=== PATIENT | female | born 1965 | race Caucasian/White ===

== ENCOUNTER → 2018-10-22 10:07 | Outpatient (CLI) | payer OTHER, SELFPAY ==
--- NOTE | 2018-10-22 10:47 | US_ITS ---
STUDY: NECK ULTRASOUND REASON FOR EXAM: Female, 53 years old. Subcutaneous lump TECHNIQUE: Ultrasound evaluation of the soft tissues of the neck was performed COMPARISON: None. FINDINGS: No sonographic evidence of subcutaneous abdomen noted. No suspicious solid or cystic mass, no hyperemia or adenopathy. US/Head/Neck Soft Tissue IMPRESSION: No suspicious sonographic findings Electronically Signed: Thomas Miller MD at 12:01 EDT , Service support ,
[2018-10-22 12:09] LABS: Vitamin D,25 Hydroxy 26.8 ng/mL (29.95-100.01)
[2018-10-22 12:11] LABS: ALB/GLOB Ratio 1.3 RATIO (0.9-2.4); AST(SGOT) 16 U/L (15-37); Alanine Aminotransfer ALT/SGPT 22 U/L (13-56); Albumin, Serum 4.4 g/dL (3.2-5.0); Alkaline Phosphatase 95 U/L (45-117); Anion Gap 4 (5-15); BUN 18 mg/dL (7-18); Calcium,Total 9.1 mg/dL (8.5-10.1); Chloride 108 mmol/L (98-107); Cholesterol 236 mg/dL (200); Creatinine, Serum 0.95 mg/dL (0.55-1.02); EST Glomerular Filtration Rate 66 mL/min (>60); Est Glom Filt Rate - Afr Amer 80 mL/min (>60); Globulin 3.4 g/dL (2.2-4.2); Glucose 84 mg/dL (74-106); High Density Lipoprotein 61 mg/dL; Potassium 4.1 mmol/L (3.5-5.1); Protein, Total 7.8 g/dL (6.4-8.2); Sodium Level 139 mmol/L (136-145); Thyroid Stim Hormone (TSH) 5.88 uIU/mL (0.358-3.74); Triglycerides 115 mg/dL; Very Low Density Lipoprotein 23 mg/dL (5-40)
== END ==
PROVIDERS: Family Provider Family Medicine; PCP Family Medicine; Referring Provider Family Medicine; Visit Provider Family Medicine
DX: M95.3 Acquired deformity of neck (principal); E03.4 Atrophy of thyroid (acquired); E55.9 Vitamin D deficiency, unspecified; R53.83 Other fatigue; Z13.220 Encounter for screening for lipoid disorders
CPT/HCPCS: 36415; 76536; 80053; 80061; 82306; 84443

== ENCOUNTER → 2018-12-09 09:46 | Outpatient (CLI) | payer OTHER, SELFPAY ==
[2015-04-02 18:56] VITALS: BMI 29.6
[2018-12-09 10:55] LABS: Thyroid Stim Hormone (TSH) 2.73 uIU/mL (0.358-3.74)
== END ==
PROVIDERS: Family Provider Family Medicine; PCP Family Medicine; Referring Provider Family Medicine; Visit Provider Family Medicine
DX: E03.4 Atrophy of thyroid (acquired) (principal)
CPT/HCPCS: 36415; 84443

== ENCOUNTER → 2019-02-11 11:04 | Outpatient (CLI) | payer OTHER, SELFPAY ==
[2015-04-02 18:56] VITALS: BMI 29.6
[2019-02-11 12:17] LABS: Thyroid Stim Hormone (TSH) 1.85 uIU/mL (0.358-3.74)
== END ==
PROVIDERS: Family Provider Family Medicine; PCP Family Medicine; Referring Provider Family Medicine; Visit Provider Family Medicine
DX: E03.4 Atrophy of thyroid (acquired) (principal)
CPT/HCPCS: 36415; 84443

== ENCOUNTER → 2019-03-11 15:43 | Outpatient (CLI) | payer OTHER, SELFPAY ==
[2015-04-02 18:56] VITALS: BMI 29.6
== END ==
PROVIDERS: Family Provider Family Medicine; PCP Family Medicine; Referring Provider Otolaryngology Otolaryngology/Facial Plastic Surgery; Visit Provider Otolaryngology Otolaryngology/Facial Plastic Surgery
DX: J02.9 Acute pharyngitis, unspecified (principal)
CPT/HCPCS: 87070

== ENCOUNTER → 2019-04-01 11:08 | Outpatient (CLI) | payer OTHER, SELFPAY ==
[2015-04-02 18:56] VITALS: BMI 29.6
[2019-04-01 12:08] LABS: Thyroid Stim Hormone (TSH) 2.11 uIU/mL (0.358-3.74)
== END ==
PROVIDERS: Family Provider Family Medicine; PCP Family Medicine; Referring Provider Family Medicine; Visit Provider Family Medicine
DX: E03.4 Atrophy of thyroid (acquired) (principal)
CPT/HCPCS: 36415; 84443

== ENCOUNTER → 2019-11-18 07:29 | Outpatient (CLI) | payer OTHER, SELFPAY ==
[2015-04-02 18:56] VITALS: BMI 29.6
[2019-11-18 10:42] LABS: Vitamin D,25 Hydroxy 38.7 ng/mL
[2019-11-18 10:52] LABS: ALB/GLOB Ratio 1.2 RATIO (0.9-2.4); AST(SGOT) 19 U/L (15-37); Alanine Aminotransfer ALT/SGPT 25 U/L (13-56); Albumin, Serum 4.2 g/dL (3.2-5.0); Alkaline Phosphatase 79 U/L (45-117); Anion Gap 7 (5-15); BUN 15 mg/dL (7-18); BUN/Creat Ratio 18.5 RATIO (10-20); Calcium,Total 9.1 mg/dL (8.5-10.1); Chloride 107 mmol/L (98-107); Cholesterol 233 mg/dL (200); Creatinine, Serum 0.81 mg/dL (0.55-1.02); EST Glomerular Filtration Rate 79 mL/min (>60); Est Glom Filt Rate - Afr Amer 95 mL/min (>60); Globulin 3.5 g/dL (2.2-4.2); Glucose 93 mg/dL (74-106); High Density Lipoprotein 59 mg/dL; Potassium 3.7 mmol/L (3.5-5.1); Protein, Total 7.7 g/dL (6.4-8.2); Sodium Level 141 mmol/L (136-145); Thyroid Stim Hormone (TSH) 2.89 uIU/mL (0.358-3.74); Triglycerides 103 mg/dL; Very Low Density Lipoprotein 21 mg/dL (5-40)
== END ==
PROVIDERS: PCP Family Medicine; Referring Provider Family Medicine; Visit Provider Family Medicine
DX: Z00.00 Encounter for general adult medical examination without abnormal findings (principal); E03.4 Atrophy of thyroid (acquired); E55.9 Vitamin D deficiency, unspecified
CPT/HCPCS: 36415; 80053; 80061; 82306; 84443

== ENCOUNTER → 2020-11-18 07:44 | Outpatient (CLI) | payer OTHER, SELFPAY ==
[2020-11-18 11:12] LABS: ALB/GLOB Ratio 1.3 RATIO (0.9-2.4); AST(SGOT) 11 U/L (15-37); Alanine Aminotransfer ALT/SGPT 22 U/L (13-56); Albumin, Serum 4.2 g/dL (3.2-5.0); Alkaline Phosphatase 85 U/L (45-117); Anion Gap 3 (5-15); BUN 16 mg/dL (7-18); BUN/Creat Ratio 18.4 RATIO (10-20); Calcium,Total 9.3 mg/dL (8.5-10.1); Chloride 109 mmol/L (98-107); Cholesterol 221 mg/dL (200); Creatinine, Serum 0.87 mg/dL (0.55-1.02); EST Glomerular Filtration Rate 72 mL/min (>60); Est Glom Filt Rate - Afr Amer 87 mL/min (>60); Globulin 3.3 g/dL (2.2-4.2); Glucose 95 mg/dL (74-106); High Density Lipoprotein 66 mg/dL; Potassium 3.9 mmol/L (3.5-5.1); Protein, Total 7.5 g/dL (6.4-8.2); Sodium Level 141 mmol/L (136-145); Thyroid Stim Hormone (TSH) 1.94 uIU/mL (0.358-3.74); Triglycerides 101 mg/dL; Very Low Density Lipoprotein 20 mg/dL (5-40)
[2020-11-24 12:55] LABS: Vitamin D,25 Hydroxy 57.2 ng/mL
== END ==
PROVIDERS: PCP Family Medicine; Referring Provider Family Medicine; Visit Provider Family Medicine
DX: Z00.00 Encounter for general adult medical examination without abnormal findings (principal); E55.9 Vitamin D deficiency, unspecified; E03.4 Atrophy of thyroid (acquired)
CPT/HCPCS: 36415; 80053; 80061; 82306; 84443

== ENCOUNTER → 2020-11-29 12:30 | Outpatient (CLI) | payer OTHER, SELFPAY ==
[2015-04-02 18:56] VITALS: BMI 29.6
[2020-11-29 15:22] LABS: Absolute Lymphocyte Count 1.74 X10^3/uL (0.83-4.51); Absolute Neutrophil Count 4.6 X10^3/uL (2.0-7.7); Basophil# 0.06 X10^3/uL; Basophil% 0.9 % (0-1); Eosinophil# 0.18 X10^3/uL; Eosinophils% 2.6 % (0-5); Hematocrit 41.5 % (37-47); Hemoglobin 13.5 g/dL (12.0-15.0); Lymphocyte # 1.74 X10^3/ul (0.83-4.51); Lymphocyte % 25.5 % (19-41); Mean Corp Hgb Conc 32.5 g/dL (32-36); Mean Corpuscular Hgb 29.7 pg (27.0-32.0); Mean Corpuscular Volume 91.4 fL (81-99); Mean Platelet Vol. 10.3 fl (6.2-12.0); Monocyte# 0.26 X10^3/uL; Monocyte% 3.8 % (0-10); NRBC Flagged by Analyzer 0 % (0-5); Neutrophil # 4.56 X10^3/uL (2.7-7.7); Neutrophil % 66.9 % (47-70); Platelet Count 266 K/mm3 (150-450); RBC Distribution Width SD 43.7 fl (35.1-43.9); Red Blood Count 4.54 M/mm3 (4.2-5.4); White Blood Count 6.8 K/mm3 (4.4-11.0)
[2020-11-29 15:36] LABS: Ferritin 80 ng/mL (8-252); Iron 58 ug/dL (50-170); Iron Binding Capacity,Total 296 ug/dL (250-450); PERCENT IRON SATURATION 19.6 % (15.0-55.0)
== END ==
PROVIDERS: PCP Family Medicine; Visit Provider Family Medicine
DX: E03.4 Atrophy of thyroid (acquired) (principal)
CPT/HCPCS: 36415; 82728; 83540; 83550; 85025

== ENCOUNTER → 2021-11-15 | Outpatient (CLI) | payer OTHER, SELFPAY ==
[2021-11-15 10:23] LABS: Vitamin D,25 Hydroxy 48.4 ng/mL
== END | disposition home or self-care (01) ==
LOC: MTLAB 07:03
PROVIDERS: PCP Family Medicine; Referring Provider Family Medicine; Visit Provider Family Medicine
DX: Z00.00 Encounter for general adult medical examination without abnormal findings (principal); E03.4 Atrophy of thyroid (acquired); E55.9 Vitamin D deficiency, unspecified; E78.00 Pure hypercholesterolemia, unspecified
CPT/HCPCS: 36415; 80053; 80061; 82306; 84443

== ENCOUNTER → 2022-04-24 | Outpatient (CLI) | payer OTHER, SELFPAY ==
[2022-04-24 10:41] LABS: Thyroid Stim Hormone (TSH) 1.51 uIU/mL (0.358-3.74)
== END | disposition home or self-care (01) ==
LOC: MTLAB 07:43
PROVIDERS: PCP Family Medicine; Referring Provider Family Medicine; Visit Provider Family Medicine
DX: E03.4 Atrophy of thyroid (acquired) (principal)
CPT/HCPCS: 36415; 84443

== ENCOUNTER → 2023-04-09 | Outpatient (CLI) | payer OTHER, SELFPAY ==
[2023-04-09 11:14] LABS: Vitamin D,25 Hydroxy 50.4 ng/mL
[2023-04-09 11:17] LABS: ALB/GLOB Ratio 1.1 RATIO (0.9-2.4); AST(SGOT) 17 U/L (15-37); Alanine Aminotransfer ALT/SGPT 25 U/L (13-56); Albumin, Serum 3.9 g/dL (3.2-5.0); Alkaline Phosphatase 85 U/L (45-117); Anion Gap 7 (5-15); BUN 17 mg/dL (7-18); BUN/Creat Ratio 17.9 RATIO (10-20); Chloride 107 mmol/L (98-107); Cholesterol 216 mg/dL (200); Creatinine, Serum 0.95 mg/dL (0.55-1.02); EST Glomerular Filtration Rate 65 mL/min (>60); Est Glom Filt Rate - Afr Amer 78 mL/min (>60); Globulin 3.5 g/dL (2.2-4.2); Glucose 96 mg/dL (74-106); High Density Lipoprotein 74 mg/dL; Potassium 3.8 mmol/L (3.5-5.1); Protein, Total 7.4 g/dL (6.4-8.2); Sodium Level 140 mmol/L (136-145); Thyroid Stim Hormone (TSH) 1.32 uIU/mL (0.358-3.74); Triglycerides 88 mg/dL; Very Low Density Lipoprotein 18 mg/dL (5-40)
== END | disposition home or self-care (01) ==
LOC: MTLAB 07:27
PROVIDERS: PCP Family Medicine; Referring Provider Family Medicine; Visit Provider Family Medicine
DX: E03.4 Atrophy of thyroid (acquired) (principal); E78.00 Pure hypercholesterolemia, unspecified; E55.9 Vitamin D deficiency, unspecified
CPT/HCPCS: 36415; 80053; 80061; 82306; 84443

== ENCOUNTER → 2023-06-05 | Outpatient (CLI) | payer OTHER, SELFPAY ==
--- NOTE | 2023-06-05 15:05 | US_ITS ---
EXAM: US RETROPERITONEAL LIMITED, RENAL CLINICAL INDICATION: UTI TECHNIQUE: Limited grayscale and color Doppler sonographic evaluation of the retroperitoneum was performed. COMPARISON: No relevant prior studies available. FINDINGS: RIGHT KIDNEY: Unremarkable. No hydronephrosis. No shadowing calculus. No perinephric collection is demonstrated. The right kidney measures 11.0 cm in length. LEFT KIDNEY: Unremarkable. No hydronephrosis. No shadowing calculus. No perinephric collection is demonstrated. The left kidney measures 11.8 cm in length. BLADDER: Bladder is normal. US/Kidney and Bladder IMPRESSION: Normal kidneys. Electronically Signed: Marshall Daugherty MD at 22:52 EST ,
== END | disposition home or self-care (01) ==
LOC: US 15:03
PROVIDERS: Referring Provider Urology; Visit Provider Urology
DX: N39.0 Urinary tract infection, site not specified (principal)
CPT/HCPCS: 76770

== ENCOUNTER → 2023-07-25 | Outpatient (CLI) | payer OTHER, SELFPAY ==
[2023-07-25 10:47] LABS: Thyroid Stim Hormone (TSH) 2.53 uIU/mL (0.358-3.74)
== END | disposition home or self-care (01) ==
LOC: MTLAB 08:50
PROVIDERS: PCP Family Medicine; Referring Provider Family Medicine; Visit Provider Family Medicine
DX: E03.9 Hypothyroidism, unspecified (principal)
CPT/HCPCS: 36415; 84443

== ENCOUNTER → 2023-12-05 | Outpatient (CLI) | payer OTHER, SELFPAY ==
--- NOTE | 2023-12-05 12:55 | RAD_ITS ---
INDICATION: BACK PAIN EXAMINATION/TECHNIQUE: X-RAY - XR Spine Lumbar Min 4 Views COMPARISON: None. FINDINGS: VERTEBRAE: Vertebral body height and alignment are maintained. Multilevel disc changes with disc space narrowing endplate sclerosis and marginal osteophyte formation however no fractures noted. No fracture. No spondylolisthesis. Preservation of the normal lumbar lordosis. Facet hypertrophic changes are present at L5-S1. DISCS: Disc space narrowing most notable at L5-S1 with disc space narrowing vacuum phenomena endplate sclerosis and marginal osteophyte formation. Mild narrowing at L4-5 and at L1-2 and L2-3. Small Schmorl''s nodes are present at L1-2 and L2-3 disc spaces. INCLUDED ABDOMEN: Included bowel gas pattern is non-obstructive. RAD/L/S Spine Min 4 Views IMPRESSION: 1. Lumbar spondylosis and facet arthrosis without evidence of fracture or acute destructive bony process. Electronically Signed: Yo Donahue MD at 20:28 EDT ,
== END | disposition home or self-care (01) ==
PROVIDERS: PCP Family Medicine; Referring Provider Family Medicine; Visit Provider Family Medicine
DX: M54.9 Dorsalgia, unspecified (principal)
CPT/HCPCS: 72110

== ENCOUNTER → 2024-03-26 | Outpatient (CLI) | payer OTHER, SELFPAY ==
[2024-03-26 10:35] LABS: Absolute Lymphocyte Count 1.29 X10^3/uL (0.83-4.51); Absolute Neutrophil Count 3.7 X10^3/uL (2.0-7.7); Basophil# 0.08 X10^3/uL; Basophil% 1.4 % (0-1); Eosinophil# 0.43 X10^3/uL; Eosinophils% 7.5 % (0-5); Hematocrit 42.4 % (37-47); Hemoglobin 13.8 g/dL (12.0-15.0); Lymphocyte # 1.29 X10^3/ul (0.83-4.51); Lymphocyte % 22.4 % (19-41); Mean Corp Hgb Conc 32.5 g/dL (32-36); Mean Corpuscular Hgb 30.1 pg (27.0-32.0); Mean Corpuscular Volume 92.6 fL (81-99); Mean Platelet Vol. 10.3 fl (6.2-12.0); Monocyte% 5.2 % (0-10); NRBC Flagged by Analyzer 0 % (0-5); Neutrophil # 3.65 X10^3/uL (2.7-7.7); Neutrophil % 63.2 % (47-70); Platelet Count 257 K/mm3 (150-450); RBC Distribution Width CV 12.9 % (11.6-14.6); RBC Distribution Width SD 43.3 fl (35.1-43.9); Red Blood Count 4.58 M/mm3 (4.2-5.4); White Blood Count 5.8 K/mm3 (4.4-11.0)
[2024-03-26 10:50] LABS: Vitamin D,25 Hydroxy 54.4 ng/mL
[2024-03-26 11:18] LABS: ALB/GLOB Ratio 1.1 RATIO (0.9-2.4); AST(SGOT) 17 U/L (15-37); Alanine Aminotransfer ALT/SGPT 23 U/L (13-56); Albumin, Serum 3.9 g/dL (3.2-5.0); Alkaline Phosphatase 89 U/L (45-117); Anion Gap 4 (5-15); BUN 14 mg/dL (7-18); BUN/Creat Ratio 14.8 RATIO (10-20); Chloride 109 mmol/L (98-107); Cholesterol 245 mg/dL (200); Creatinine, Serum 0.95 mg/dL (0.55-1.02); EST Glomerular Filtration Rate 65 mL/min (>60); Est Glom Filt Rate - Afr Amer 78 mL/min (>60); Globulin 3.4 g/dL (2.2-4.2); Glucose 102 mg/dL (74-106); High Density Lipoprotein 69 mg/dL; Potassium 3.8 mmol/L (3.5-5.1); Protein, Total 7.3 g/dL (6.4-8.2); Sodium Level 140 mmol/L (136-145); Triglycerides 118 mg/dL; Very Low Density Lipoprotein 24 mg/dL (5-40)
== END | disposition home or self-care (01) ==
LOC: MTLAB 08:43
PROVIDERS: PCP Family Medicine; Referring Provider Family Medicine; Visit Provider Family Medicine
DX: E55.9 Vitamin D deficiency, unspecified (principal); E03.9 Hypothyroidism, unspecified
CPT/HCPCS: 36415; 80053; 80061; 82306; 84443; 85025

== ENCOUNTER → 2024-03-30 | Outpatient (CLI) | payer OTHER, SELFPAY ==
[2024-03-30 10:57] LABS: Vitamin B12 522 pg/mL (211-911)
[2024-03-30 11:35] LABS: Free T3 2.4 pg/mL (2.18-3.98); T4 Free Direct 0.86 ng/dL (0.76-1.46)
[2024-03-31 13:08] LABS: SJOGREN'S Anti-SS-A test < 0.2 AI (0.0-0.9); SJOGREN'S Anti-SS-B test 4.1 AI (0.0-0.9)
[2024-04-01 16:11] LABS: Zinc, Plasma or Serum 81 ug/dL (44-115)
== END | disposition home or self-care (01) ==
LOC: MFPLAB 09:07
PROVIDERS: PCP Family Medicine; Visit Provider Family Medicine
DX: K14.8 Other diseases of tongue (principal); E03.9 Hypothyroidism, unspecified
CPT/HCPCS: 36415; 82607; 82746; 84439; 84481; 84630; 86235

== ENCOUNTER → 2024-09-02 | Outpatient (CLI) | payer OTHER, SELFPAY ==
--- NOTE | 2024-09-02 12:35 | RAD_ITS ---
PROCEDURE: LUMBAR SPINE 2 OR 3 VIEWS REASON FOR EXAM: Back pain TECHNIQUE: 2 view(s) of the lumbar spine COMPARISON: None. FINDINGS: Lumbar lordosis is maintained. Vertebral body heights are within normal limits. Multilevel loss of disc space height most prominent at L5-S1 pedicles are intact. Osseous architecture is within normal limits. Multilevel degenerative changes including facet degenerative changes, endplate remodeling and endplate osteophytosis most prominent at L5-S1 SI joints are unremarkable. No suspicious lytic or blastic lesion. RAD/Lumbar Spine 2 or 3 Views IMPRESSION: No acute fracture or traumatic subluxation. [id number] multilevel degenerative changes most prominent at L5-S1 Reading Location: [id number]
== END | disposition home or self-care (01) ==
LOC: MTRAD 12:35
PROVIDERS: PCP Family Medicine
DX: M54.50 Low back pain, unspecified (principal)
CPT/HCPCS: 72100

== ENCOUNTER 2024-09-05 12:48 | Emergency (ER) | payer OTHER, SELFPAY ==
[2024-09-05 12:50] VITALS: BP 167/82; PULSE 72; RESP 16; TEMP 36.4; O2SAT 100; BMI 30.4
--- NOTE | 2024-09-05 13:33 | EDS_ITS ---
HPI History of Present Illness Chief Complaint: Lower Extremity Injury Detail of Chief Complaint: Right thigh pain Informant: patient Narrative Narrative: Patient presents with right eye pain that started 6 days ago. She states she woke up with pain. Prior to that she states that she was doing a lot of isometric squats trying to get her legs in the shape. She was seen by her practitioner in her PCPs office x 2 this last week. She was during prednisone 3 days ago. She is also on cyclobenzaprine and meloxicam. She cannot get any relief. She denies any back pain. Apparently she had an MRI of her back ordered. She has had no other imaging. She denies recent travel or surgery. She is never had discomfort like this before [facility] Medical History (Updated 09/05/24 @ 16:[address] Alvin La, DO) Thyroid disease Home Medications ?Medication ?Instructions ?Recorded ?Last Taken ?Type levothyroxine 75 mcg tablet 75 mcg PO DAILY PRN Unknown History diazepam 5 mg tablet (Valium) 5 mg PO TID PRN muscle s pasm #10 09/05/24 Unknown Rx tabs gabapentin 300 mg capsule 300 mg PO TID #30 caps 09/05 Unknown Rx hydrocodone-acetaminophen 5-325mg 1 tab PO Q4H PRN PRN Pain 2 days 09/05/24 Unknown Rx 5mg-325mg #15 TABLETS Allergy/AdvReac Type Severity Reaction Status Date / Time No Known Allergies Allergy Verified 06/27/22 11:07 Surgical History H/O: hysterectomy Social History Smoking Status: Never smoker ROS ROS ED Review of Systems ROS Unobtainable: other Constitutional Constitutional ED: Reports lethargy; Denies chills, fever(s), sweats or weight loss Eyes Eyes: Denies blurry vision, change in vision or diplopia ENT ENT ED: Denies rhinorrhea or sore throat Cardiovascular Cardiovascular: Denies chest pain, orthopnea or racing heartbeat Respiratory/Chest Respiratory/Chest: Denies cough, dyspnea, dyspnea on exertion, orthopnea or sputum Gastrointestinal Gastrointestinal: Denies abdominal pain, diarrhea, nausea or vomiting Genitourinary Genitourinary ED: Denies dysuria, hematuria or urinary frequency Musculoskeletal Musculoskeletal: Reports other Details: Right thigh pain ; Denies arthralgias, back pain, myalgias or neck pain Integumentary Denies abscess, Abrasions or rash Neurologic Neurologic: Denies headache(s) or weakness Psychiatric Psychiatric: Denies anxiety, depression or suicidal thoughts Endocrine Endocrinology: Denies polydipsia, polyphagia or polyuria Hematologic/Lymphatic Hematologic/Lymphatic: Denies easy bleeding, easy bruising or lymphadenopathy Allergic/Immunologic Allergic/Immunologic ED: Denies mouth swelling, tongue swelling or urticaria EXAM Physical Exam Const Vital Signs: 09/05/24 12:50 09/05/24 15:00 Temperature 97.6 F L Temperature Source Temporal Pulse Rate 72 Respiratory Rate 16 18 Blood Pressure 167/82 H 189/105 H Blood Pressure Mean 110 133 Pulse Ox 100 98 Oxygen Delivery Method Room Air Room Air MDM MDM MDM Narrative Medical decision making narrative: Patient with right thigh pain for about 6 days without significant injury other than she was doing isometric squats. In the differential would be torn patient quadricep muscle or muscle spasm versus electrolyte abnormality or rhabdomyolysis. I did obtain x-rays of the right femur and there was no evidence of lytic lesions or other abnormalities. Patient had a D-dimer that was negative at 0.27. Chemistries unremarkable. Magnesium was normal at 2.2. Total CPK was normal at 151. Patient was medicated with Valium and given a milligram of Dilaudid. She has intermittent severe discomfort. At this point suspicion for radiculopathy is low but she is to schedule an MRI of her back in 2 days. Suspect she may need more imaging of the right thigh such as MRI to evaluate the musculature. It is possible she may need EMG studies to evaluate for a compressive radiculopathy. Meralgia paresthetica also in the differential. Will start patient on Valium as well as hydrocodone for pain. Will also start on gabapentin as I suspect she may have some nerve component. Patient will be referred to orthopedics for follow-up. Lab Data Attestation: I reviewed the patient's lab results. Labs: Laboratory Results - last 24 hr 09/05/24 13:55 D-Dimer Quant (PE/DVT) 0.27 Sodium 141 Potassium 3.8 Chloride 106 Carbon Dioxide 22.7 Anion Gap 12 BUN 20 H Creatinine 0.98 Estim Creat Clear Calc 72.15 Est GFR (MDRD) Non-Af 68 BUN/Creatinine Ratio 20.0 Glucose 115 H Calcium 9.8 Magnesium 2.2 Total Creatine Kinase 151 Radiography Diagnostic Testing: Clinical Impression(s) from Imaging Studies Femur X-Ray 09/05/24 14:21 IMPRESSION: NEGATIVE FEMUR Reading Location: [facility] 4 view x-rays of the right femur obtained interpreted by myself as no evidence of fracture dislocation or abnormal lytic lesions or soft tissue lesions. Radiology in agreement. Discharge Plan Triage Chief Complaint: Lower Extremity Injury ED Provider: Alvin La Dx/Rx/DC Orders Clinical Impression: Acute pain of right thigh Instructions: ED Pain, Acute, Uncertain Cause Prescriptions: New hydrocodone-acetaminophen 5-325 mg tablet 1 tab PO Q4H PRN PRN (Reason: Pain) 2 Days Qty: 15 0RF diazepam [Valium] 5 mg tablet 5 mg PO TID PRN (Reason: muscle spasm) Qty: 10 0RF gabapentin 300 mg capsule 300 mg PO TID Qty: 30 0RF No Action levothyroxine 75 mcg tablet 75 mcg PO DAILY PRN Primary Care Provider: Armen Donaldson Referrals: Armen Donaldson MD [Primary Care Provider] - Benito Amanda DO [Med Staff - Active Staff] - 3-5 Days Print Language: Tongan Disposition Disposition: Home, Self Care
[2024-09-05] MEDS: diazePAM 5 MG Tablet PO (13:47)
[2024-09-05] MEDS: HYDROmorphone 1 MG/ML Syringe IV (14:02)
[2024-09-05 14:18] LABS: D-Dimer Quantitative (DVT/PE) 0.27 FEU/ug/m (0.27-0.49)
--- NOTE | 2024-09-05 14:21 | RAD_ITS ---
PROCEDURE: FEMUR MIN 2 VIEWS REASON FOR EXAM: 59-year-old female, sharp right anterior thigh pain x1 week. TECHNIQUE: 4 view(s) of the right femur COMPARISON: None. FINDINGS: No acute fracture. No suspicious bone lesion. Mild right hip arthrosis. Normal alignment at the knee. Soft tissues are unremarkable. RAD/Femur Min 2 Views IMPRESSION: NEGATIVE FEMUR Reading Location: [id number]
[2024-09-05 14:27] LABS: Anion Gap 12 (5-15); BUN 20 mg/dL (4-19); Calcium,Total 9.8 mg/dL (7.6-11.0); Carbon Dioxide 22.7 mmol/L (21.0-32.0); Chloride 106 mmol/L (98-108); Creatinine, Serum 0.98 mg/dL (0.70-1.20); EST Glomerular Filtration Rate 68 (>60); Estimated Creatinine Clearance 72.15 ml/min (50-250); Glucose 115 mg/dL (70-99); Magnesium 2.2 mg/dL (1.5-2.2); Potassium 3.8 mmol/L (3.3-5.1); Sodium Level 141 mmol/L (133-145)
[2024-09-05 15:00] VITALS: BP 189/105; RESP 18; O2SAT 98
[2024-09-05 16:08] LABS: CPK Total, Creatine Kinase 151 U/L (24-195)
[2024-09-05 16:46] VITALS: BP 189/89; PULSE 70; RESP 18; TEMP 36.7; O2SAT 100
== END 2024-09-05 16:48 | disposition home or self-care (01) ==
PROVIDERS: Emergency Provider Emergency Medicine; PCP Family Medicine; Visit Provider Emergency Medicine
DX: M79.651 Pain in right thigh (principal); H57.11 Ocular pain, right eye; E07.9 Disorder of thyroid, unspecified; Z90.710 Acquired absence of both cervix and uterus
CPT/HCPCS: 73552; 80048; 82550; 83735; 85379; 96374; 99283; A4216

== ENCOUNTER → 2025-06-29 | Outpatient (CLI) | payer OTHER, SELFPAY ==
[2025-06-29 10:37] LABS: Hematocrit 42.3 % (37-47); Hemoglobin 14.1 g/dL (12.0-15.0); Immature Granulocytes Count 0.020 X10^3/uL (0.0-0.0); Mean Corp Hgb Conc 33.3 g/dL (32-36); Mean Corpuscular Volume 92.0 fL (81-99); Mean Platelet Vol. 10.0 fl (6.2-12.0); NRBC Flagged by Analyzer 0 % (0-5); Platelet Count 250 K/mm3 (150-450); RBC Distribution Width CV 12.8 % (11.6-14.6); RBC Distribution Width SD 42.9 fl (35.1-43.9); Red Blood Count 4.60 M/mm3 (4.2-5.4); White Blood Count 5.7 K/mm3 (4.4-11.0)
[2025-06-29 11:01] LABS: AST(SGOT) 21 U/L (<=31); Alanine Aminotransfer ALT/SGPT 22 U/L (<=34); Albumin, Serum 4.6 g/dL (3.5-5.0); Alkaline Phosphatase 94 U/L (35-104); Anion Gap 11 (7-18); BUN 18 mg/dL (4-19); BUN/Creat Ratio 20.1 RATIO (10-20); Calcium,Total 9.5 mg/dL (7.6-11.0); Carbon Dioxide 23.0 mmol/L (20.0-29.0); Chloride 107 mmol/L (96-106); Globulin 2.5 g/dL (2.2-4.2); Glucose 99 mg/dL (70-99); Potassium 4.0 mmol/L (3.5-5.1)
== END | disposition home or self-care (01) ==
LOC: MTLAB 08:23
PROVIDERS: PCP Family Medicine; Referring Provider Podiatrist; Visit Provider Podiatrist
DX: B35.1 Tinea unguium (principal)
CPT/HCPCS: 36415; 80053; 85025